=== PATIENT | male | born 1975 | race Caucasian/White ===

== ENCOUNTER 2021-08-12 10:58 | Emergency (ER) | payer BC ==
[2021-08-12] MEDS ORDERED: Lidocaine 1% w/Epinephrine 1:100K 20 ML VIAL ONE (12:44)
[2021-08-12] MEDS ORDERED: Boostrix 0.5 ML (Tdap) VIAL ONE (12:56)
== END 2021-08-12 13:33 | disposition home or self-care (01) ==
LOC: ERS 10:58
DX: S41.011A Laceration without foreign body of right shoulder, initial encounter (principal); W18.2XXA Fall in (into) shower or empty bathtub, initial encounter; W26.9XXA Contact with unspecified sharp object(s), initial encounter; Z23 Encounter for immunization; Z79.899 Other long term (current) drug therapy
CPT/HCPCS: 12005; 90471; 90715

== ENCOUNTER 2021-08-28 15:02 | Emergency (ER) | payer BC | END 2021-08-28 15:26 | disposition home or self-care (01) | LOC: ERS 15:02 | DX: S41.011D Laceration without foreign body of right shoulder, subsequent encounter (principal); E03.9 Hypothyroidism, unspecified; Z79.899 Other long term (current) drug therapy ==